=== PATIENT | male | born 1965 | race Caucasian/White ===

== ENCOUNTER 2018-10-09 10:16 | Emergency (ER) | payer BC ==
[2018-10-09 10:52] VITALS: BP 154/81; PULSE 95; TEMP 98.2
[2018-10-09] MEDS ORDERED: DEXAMETHASONE LIQUID 0.5 MG/5 ML 240 ML BULK BOTTLE PO ONE (12:14)
[2018-10-09] MEDS ORDERED: DEXAMETHASONE SOD PHOSPHATE 10 MG/1 ML VIAL ONE (12:16)
--- NOTE | 2018-10-09 12:22 | PDOC ---
History of Present Illness - General Chief Complaint: Allergic Reaction Stated Complaint: ALLERGIC REACTION RASH Time Seen by Provider: 10/09/18 12:11 - History of Present Illness Initial Comments: 10/09/18 12:19 53-year-old male without comorbidities presents for evaluation of rash 3 days. He states his switched detergents since that time he developed a rash throughout his body without systemic symptoms or difficulty breathing Past History - Past Medical History Allergies/Adverse Reactions: Allergies Allergy/AdvReac Type Severity Reaction Status Date / Time No Known Allergies Allergy Verified 10/09/18 12:15 Home Medications: Ambulatory Orders NK [No Known Home Medication] 10/09/18 COPD: No CHF: No - Immunization History Immunization Up to Date: Yes - Suicide/Smoking/Psychosocial Hx Smoking History: Never smoked Hx Alcohol Use: No Drug/Substance Use Hx: No Substance Use Type: None Review of Systems - Review of Systems Constitutional: No: Fever Respiratory: No: Cough, Shortness of Breath, Wheezing Integumentary: Yes: Pruritus, Rash *Physical Exam - Vital Signs Last Vital Signs Temp Pulse Resp BP Pulse Ox 98.2 F 95 H 16 154/81 99 10/09/18 10:49 10/09/18 10:49 10/09/18 10:49 10/09/18 10:49 10/09/18 10:49 - Physical Exam Comments: 10/09/18 12:20 HEAD: NC/AT EYES: Conjuntiva clear Ears: Canals and TM's normal NOSE: No d/c THROAT: Moist mucous membrances, oral pharanx clear, uvula midline NECK: Supple without adenopathy CARDIAC: S1 S2 LUNGS: CTA Full and Equal breath sounds ABDOMEN: Soft NT ND MS: Full ROM in all joints without edema NEUROLOGIC: No gross sensory or motor deficits, NVID SKIN: Normal color and temperature there is a diffuse erythemic raised wheal rash with distinct lines where his clothing ends such as in the sock area sleeves and chest. There is no indication of secondary infection *DC/Admit/Observation/Transfer Diagnosis at time of Disposition: Allergic reaction to chemical substance - Discharge Dispostion Disposition: HOME Condition at time of disposition: Stable Decision to Admit order: No - Referrals Referrals: Tom Jackman MD [Primary Care Provider] - - Patient Instructions Printed Discharge Instructions: DI for Eye Allergic Reaction Additional Instructions: You're given a dose of steroids in the emergency room today. He should not require any more steroid treatment. Benadryl for itching for the next few days as directed. Return to the emergency room should symptoms worsen or go unresolved. Please follow-up with your primary care physician once 2 days for further evaluation and treatment options. Discontinue the laundry detergent that has irritated skin and [id number] brand in order to avoid the problem. - Post Discharge Activity
== END 2018-10-09 12:25 | disposition home or self-care (01) ==
LOC: JERFT 10:16
DX: T55.1X1A Toxic effect of detergents, accidental (unintentional), initial encounter (principal); L23.5 Allergic contact dermatitis due to other chemical products; Y92.018 Other place in single-family (private) house as the place of occurrence of the external cause
CPT/HCPCS: 99281-25